=== PATIENT | female | born 1945 | race Caucasian/White ===

== ENCOUNTER → 2016-08-09 16:51 | Outpatient (CLI) | payer MEDICARE, OTHER ==
[2015-07-14 10:17] VITALS: BMI 27.6
[~2016-08-09 16:51] MED LIST: BAYER CHEWABLE81 MG PO; CALCIUM 600 +1 EAC3 PO; CO Q-10100 MG PO; COLACE100 MG PO; K-DUR20 MEQ PO; LASIX20 MG PO; PRAVASTATIN SOD10 MG PO; PRILOSEC20 MG PO; SENOKOT-S TABLE1 TAB PO; ULTRAM50 MG PO; ZIAC 5-6.25 MG1 TAB PO
== END | disposition home or self-care (01) ==
LOC: D.MAMMO 08-07 13:00
DX: Z12.31 Encounter for screening mammogram for malignant neoplasm of breast (principal)

== ENCOUNTER → 2017-10-26 23:38 | Outpatient (CLI) | payer MEDICARE, OTHER ==
[2015-07-14 10:17] VITALS: BMI 27.6
== END | disposition home or self-care (01) ==
LOC: D.MAMMO 13:00
DX: Z12.31 Encounter for screening mammogram for malignant neoplasm of breast (principal)

== ENCOUNTER → 2017-11-12 22:29 | Outpatient (CLI) | payer MEDICARE, OTHER ==
[2015-07-14 10:17] VITALS: BMI 27.6
== END | disposition home or self-care (01) ==
LOC: D.MAMMO 09:30
DX: R92.8 Other abnormal and inconclusive findings on diagnostic imaging of breast (principal)

== ENCOUNTER → 2018-11-21 16:28 | Outpatient (CLI) | payer MEDICARE ==
[2015-07-14 10:17] VITALS: BMI 27.6
== END | disposition home or self-care (01) ==
LOC: D.MAMMO 11-20 09:00
PROVIDERS: ATTEND Clinical Nurse Specialist Family Health
DX: Z12.31 Encounter for screening mammogram for malignant neoplasm of breast (principal)

== ENCOUNTER → 2019-01-21 07:53 | Outpatient (CLI) | payer MEDICARE ==
[2015-07-14 10:17] VITALS: BMI 27.6
== END | disposition home or self-care (01) ==
LOC: D.HCCARDIO 07:53
PROVIDERS: ATTEND Internal Medicine Cardiovascular Disease
DX: I25.10 Atherosclerotic heart disease of native coronary artery without angina pectoris (principal); I34.0 Nonrheumatic mitral (valve) insufficiency

== ENCOUNTER → 2020-02-04 11:23 | Outpatient (CLI) | payer MEDICARE ==
[2015-07-14 10:17] VITALS: BMI 27.6
== END | disposition home or self-care (01) ==
LOC: D.HCCECHO 11:23
PROVIDERS: ATTEND Internal Medicine Cardiovascular Disease
DX: I25.10 Atherosclerotic heart disease of native coronary artery without angina pectoris (principal)

== ENCOUNTER 2020-04-16 14:30 | Outpatient (CLI) | payer MEDICARE ==
[2015-07-14 10:17] VITALS: BMI 27.6
== END 2020-04-16 23:59 | disposition home or self-care (01) ==
LOC: D.MAMMO 14:30
PROVIDERS: ATTEND Family Medicine
DX: Z12.31 Encounter for screening mammogram for malignant neoplasm of breast (principal)